=== PATIENT | male | born 1960 | race Caucasian/White ===

== ENCOUNTER → 2019-10-31 15:22 | Outpatient (CLI) | payer MEDICARE, SELFPAY ==
[2019-10-31 15:54] LABS: Basophils # 0.1 K/mm3 (0-0.2); Basophils % 0.8 % (0.1-2.0); Eosinophils # 0.4 K/mm3 (0.0-0.4); Eosinophils % 6.2 % (0.1-12.0); Hematocrit 43.9 % (42.0-52.0); Hemoglobin 14.5 g/dL (14.1-18.0); Lymphocytes # 1.9 K/mm3 (0.7-4.5); Lymphocytes % 25.9 % (10-50); Mean Corpuscular HGB Conc 33.1 g/dL (31.8-35.4); Mean Corpuscular Hemoglobin 28.8 pg (27.0-31.2); Mean Corpuscular Volume 87.2 fl (80-94); Mean Platelet Volume 9.2 fl (7.4-10.4); Monocytes # 0.5 K/mm3 (0.1-1.0); Neutrophils # 4.3 K/mm3 (1.8-7.8); Neutrophils % 60.1 % (37.0-80.0); Platelet Count 168 K/mm3 (142-424); Red Blood Count 5.03 M/mm3 (4.60-6.20); Red Cell Distribution Width 16.5 % (11.5-17.5); White Blood Count 7.2 K/mm3 (4.8-10.8)
[2019-10-31 17:43] LABS: Alanine Aminotransferase 16 U/L (12-78); Albumin Level 3.2 g/dl (3.5-5.0); Albumin/Globulin Ratio 1.3 (1.1-1.8); Alkaline Phosphatase 50 U/L (38-126); Anion Gap 8.9 mEq/L (5-15); Aspartate Amino Transferase 26 U/L (17-59); Bilirubin,Total 0.4 mg/dl (0.2-1.3); Blood Urea Nitrogen 14 mg/dl (9-20); Calcium 8.5 mg/dl (8.4-10.2); Carbon Dioxide 21 mmol/L (22.0-30.0); Chloride 110 mmol/L (98-107); Creatine Kinase 25 U/L (55-170); Estimated Glomerular Filt Rate 309 ml/min (>60); GFR (African American) 374 ML/MIN (>60); Globulin 2.4 g/dL (1.3-3.2); Glucose 74 mg/dl (74-100); Potassium 3.9 mmoL/L (3.5-5.1); Sodium 136 mmol/L (136-145); Total Protein,Serum 5.6 g/dl (6.3-8.2)
== END ==
PROVIDERS: Visit Provider Internal Medicine Infectious Disease
DX: M86.18 Other acute osteomyelitis, other site (principal)
CPT/HCPCS: 80053; 82550; 85025; 86140

== ENCOUNTER → 2019-12-12 18:01 | Outpatient (CLI) | payer MEDICARE, SELFPAY ==
[2019-12-12 18:15] LABS: Basophils % 0.5 % (0.1-2.0); Eosinophils # 0.4 K/mm3 (0.0-0.4); Eosinophils % 4.7 % (0.1-12.0); Hematocrit 40.8 % (42.0-52.0); Hemoglobin 13.3 g/dL (14.1-18.0); Lymphocytes # 1.6 K/mm3 (0.7-4.5); Lymphocytes % 20.1 % (10-50); Mean Corpuscular HGB Conc 32.5 g/dL (31.8-35.4); Mean Corpuscular Hemoglobin 27.8 pg (27.0-31.2); Mean Corpuscular Volume 85.5 fl (80-94); Monocytes # 0.4 K/mm3 (0.1-1.0); Monocytes % 5.3 % (1.7-9.3); Neutrophils # 5.4 K/mm3 (1.8-7.8); Neutrophils % 69.4 % (37.0-80.0); Platelet Count 261 K/mm3 (142-424); Red Blood Count 4.77 M/mm3 (4.60-6.20); Red Cell Distribution Width 15.9 % (11.5-17.5); White Blood Count 7.8 K/mm3 (4.8-10.8)
[2019-12-12 19:44] LABS: Erythrocyte Sedimentation Rate 81 mm/hr (0-20)
[2019-12-19 11:11] LABS: C-Reactive Protein 5.8 mg/L (0-4)
== END ==
PROVIDERS: Visit Provider Physical Medicine & Rehabilitation Spinal Cord Injury Medicine
DX: L89.224 Pressure ulcer of left hip, stage 4 (principal); M86.18 Other acute osteomyelitis, other site; G82.53 Quadriplegia, C5-C7 complete
CPT/HCPCS: 85025; 85651; 86140

== ENCOUNTER → 2020-02-06 16:53 | Outpatient (CLI) | payer MEDICARE, SELFPAY ==
[2020-02-06 17:13] LABS: Basophils # 0.1 K/mm3 (0-0.2); Basophils % 0.9 % (0.1-2.0); Eosinophils # 0.5 K/mm3 (0.0-0.4); Eosinophils % 8.7 % (0.1-12.0); Hematocrit 39.5 % (42.0-52.0); Hemoglobin 13.3 g/dL (14.1-18.0); Lymphocytes # 1.9 K/mm3 (0.7-4.5); Lymphocytes % 30.5 % (10-50); Mean Corpuscular HGB Conc 33.7 g/dL (31.8-35.4); Mean Corpuscular Hemoglobin 29.2 pg (27.0-31.2); Mean Corpuscular Volume 86.6 fl (80-94); Mean Platelet Volume 9.1 fl (7.4-10.4); Monocytes # 0.4 K/mm3 (0.1-1.0); Monocytes % 6.9 % (1.7-9.3); Neutrophils # 3.2 K/mm3 (1.8-7.8); Platelet Count 177 K/mm3 (142-424); Red Blood Count 4.56 M/mm3 (4.60-6.20); Red Cell Distribution Width 16.6 % (11.5-17.5); White Blood Count 6.1 K/mm3 (4.8-10.8)
[2020-02-06 17:22] LABS: Chloride 104 mmol/L (98-107); Potassium 4.1 mmoL/L (3.5-5.1); Sodium 135 mmol/L (136-145)
[2020-02-06 17:25] LABS: Alanine Aminotransferase 57 U/L (12-78); Albumin Level 3.8 g/dl (3.5-5.0); Alkaline Phosphatase 80 U/L (38-126); Anion Gap 9.1 mEq/L (5-15); Aspartate Amino Transferase 41 U/L (17-59); Bilirubin,Total 0.6 mg/dl (0.2-1.3); Blood Urea Nitrogen 11 mg/dl (9-20); Calcium 10.3 mg/dl (8.4-10.2); Carbon Dioxide 26 mmol/L (22.0-30.0); Estimated Glomerular Filt Rate 171 ml/min (>60); GFR (African American) 207 ML/MIN (>60); Glucose 116 mg/dl (74-100); Total Protein,Serum 6.6 g/dl (6.3-8.2)
[2020-02-06 17:26] LABS: Albumin/Globulin Ratio 1.4 (1.1-1.8); Globulin 2.8 g/dL (1.3-3.2)
[2020-02-06 17:29] LABS: Creatine Kinase < 20 U/L (55-170)
[2020-02-06 17:31] LABS: C-Reactive Protein 1.4 mg/L (0-4)
[2020-02-06 21:21] LABS: Erythrocyte Sedimentation Rate 22 mm/hr (0-20)
== END ==
PROVIDERS: Visit Provider Internal Medicine Infectious Disease
DX: M86.18 Other acute osteomyelitis, other site (principal)
CPT/HCPCS: 80053; 82550; 85025; 85651; 86140

== ENCOUNTER → 2020-02-13 14:45 | Outpatient (CLI) | payer MEDICARE, SELFPAY ==
[2020-02-13 16:00] LABS: Basophils # 0.1 K/mm3 (0-0.2); Basophils % 0.7 % (0.1-2.0); Eosinophils # 0.7 K/mm3 (0.0-0.4); Eosinophils % 8.1 % (0.1-12.0); Hemoglobin 13.9 g/dL (14.1-18.0); Lymphocytes # 1.4 K/mm3 (0.7-4.5); Lymphocytes % 16.5 % (10-50); Mean Corpuscular HGB Conc 34.7 g/dL (31.8-35.4); Mean Corpuscular Hemoglobin 30.2 pg (27.0-31.2); Mean Platelet Volume 9.2 fl (7.4-10.4); Monocytes # 0.5 K/mm3 (0.1-1.0); Monocytes % 5.2 % (1.7-9.3); Neutrophils # 6.1 K/mm3 (1.8-7.8); Neutrophils % 69.6 % (37.0-80.0); Platelet Count 183 K/mm3 (142-424); Red Blood Count 4.59 M/mm3 (4.60-6.20); Red Cell Distribution Width 16.8 % (11.5-17.5); White Blood Count 8.8 K/mm3 (4.8-10.8)
[2020-02-13 16:07] LABS: Chloride 105 mmol/L (98-107); Sodium 137 mmol/L (136-145)
[2020-02-13 16:08] LABS: Potassium 4.3 mmoL/L (3.5-5.1)
[2020-02-13 16:10] LABS: Alanine Aminotransferase 34 U/L (12-78); Albumin Level 3.9 g/dl (3.5-5.0); Albumin/Globulin Ratio 1.4 (1.1-1.8); Alkaline Phosphatase 82 U/L (38-126); Anion Gap 13.3 mEq/L (5-15); Aspartate Amino Transferase 28 U/L (17-59); Bilirubin,Total 0.6 mg/dl (0.2-1.3); Blood Urea Nitrogen 12 mg/dl (9-20); Carbon Dioxide 23 mmol/L (22.0-30.0); Estimated Glomerular Filt Rate 221 ml/min (>60); GFR (African American) 267 ML/MIN (>60); Globulin 2.7 g/dL (1.3-3.2); Total Protein,Serum 6.6 g/dl (6.3-8.2)
[2020-02-13 16:11] LABS: Calcium 10.1 mg/dl (8.4-10.2); Glucose 134 mg/dl (74-100)
[2020-02-13 16:32] LABS: Erythrocyte Sedimentation Rate 24 mm/hr (0-20)
== END ==
PROVIDERS: Visit Provider Internal Medicine Infectious Disease
DX: M86.18 Other acute osteomyelitis, other site (principal)
CPT/HCPCS: 80053; 85025; 85651

== ENCOUNTER → 2020-02-21 14:52 | Outpatient (CLI) | payer MEDICARE, SELFPAY ==
[2020-02-21 15:50] LABS: Basophils # 0.1 K/mm3 (0-0.2); Basophils % 0.8 % (0.1-2.0); Eosinophils # 0.6 K/mm3 (0.0-0.4); Eosinophils % 9.8 % (0.1-12.0); Hematocrit 41.9 % (42.0-52.0); Hemoglobin 13.8 g/dL (14.1-18.0); Lymphocytes # 1.7 K/mm3 (0.7-4.5); Lymphocytes % 29.1 % (10-50); Mean Corpuscular HGB Conc 32.9 g/dL (31.8-35.4); Mean Corpuscular Hemoglobin 29.2 pg (27.0-31.2); Mean Corpuscular Volume 88.8 fl (80-94); Mean Platelet Volume 8.8 fl (7.4-10.4); Monocytes # 0.5 K/mm3 (0.1-1.0); Monocytes % 7.8 % (1.7-9.3); Neutrophils # 3.1 K/mm3 (1.8-7.8); Neutrophils % 52.5 % (37.0-80.0); Platelet Count 185 K/mm3 (142-424); Red Blood Count 4.71 M/mm3 (4.60-6.20); Red Cell Distribution Width 16.8 % (11.5-17.5)
[2020-02-21 17:00] LABS: Chloride 102 mmol/L (98-107); Sodium 136 mmol/L (136-145)
[2020-02-21 17:01] LABS: Potassium 4.5 mmoL/L (3.5-5.1)
[2020-02-21 17:03] LABS: Alanine Aminotransferase 24 U/L (12-78); Alkaline Phosphatase 79 U/L (38-126); Anion Gap 14.5 mEq/L (5-15); Aspartate Amino Transferase 30 U/L (17-59); Bilirubin,Total 0.5 mg/dl (0.2-1.3); Blood Urea Nitrogen 18 mg/dl (9-20); Carbon Dioxide 24 mmol/L (22.0-30.0); Estimated Glomerular Filt Rate 221 ml/min (>60); GFR (African American) 267 ML/MIN (>60)
[2020-02-21 17:04] LABS: Albumin Level 3.6 g/dl (3.5-5.0); Albumin/Globulin Ratio 1.4 (1.1-1.8); Calcium 9.8 mg/dl (8.4-10.2); Globulin 2.6 g/dL (1.3-3.2); Glucose 106 mg/dl (74-100); Total Protein,Serum 6.2 g/dl (6.3-8.2)
[2020-02-21 17:15] LABS: C-Reactive Protein 3.5 mg/L (0-4)
[2020-02-21 17:45] LABS: Erythrocyte Sedimentation Rate 24 mm/hr (0-20)
[2020-02-21 18:09] LABS: Creatine Kinase < 20 U/L (55-170)
== END ==
PROVIDERS: Visit Provider Internal Medicine Infectious Disease
DX: M86.18 Other acute osteomyelitis, other site (principal)
CPT/HCPCS: 80053; 82550; 85025; 85651; 86140

== ENCOUNTER → 2020-02-27 17:58 | Outpatient (CLI) | payer MEDICARE, SELFPAY ==
[2020-02-27 18:24] LABS: Basophils % 0.6 % (0.1-2.0); Eosinophils # 0.4 K/mm3 (0.0-0.4); Eosinophils % 7.2 % (0.1-12.0); Hematocrit 43.7 % (42.0-52.0); Hemoglobin 14.6 g/dL (14.1-18.0); Lymphocytes # 1.9 K/mm3 (0.7-4.5); Lymphocytes % 31.7 % (10-50); Mean Corpuscular HGB Conc 33.4 g/dL (31.8-35.4); Mean Corpuscular Hemoglobin 29.3 pg (27.0-31.2); Mean Corpuscular Volume 87.7 fl (80-94); Mean Platelet Volume 8.9 fl (7.4-10.4); Monocytes # 0.4 K/mm3 (0.1-1.0); Monocytes % 7.5 % (1.7-9.3); Neutrophils # 3.1 K/mm3 (1.8-7.8); Platelet Count 177 K/mm3 (142-424); Red Blood Count 4.99 M/mm3 (4.60-6.20); Red Cell Distribution Width 16.8 % (11.5-17.5); White Blood Count 5.9 K/mm3 (4.8-10.8)
[2020-02-27 19:20] LABS: Chloride 105 mmol/L (98-107); Potassium 4.6 mmoL/L (3.5-5.1); Sodium 138 mmol/L (136-145)
[2020-02-27 19:22] LABS: Alanine Aminotransferase 29 U/L (12-78); Aspartate Amino Transferase 32 U/L (17-59); Blood Urea Nitrogen 13 mg/dl (9-20); Estimated Glomerular Filt Rate 221 ml/min (>60); GFR (African American) 267 ML/MIN (>60)
[2020-02-27 19:23] LABS: Albumin Level 3.7 g/dl (3.5-5.0); Albumin/Globulin Ratio 1.3 (1.1-1.8); Alkaline Phosphatase 100 U/L (38-126); Anion Gap 15.6 mEq/L (5-15); Bilirubin,Total 0.5 mg/dl (0.2-1.3); Calcium 10.1 mg/dl (8.4-10.2); Carbon Dioxide 22 mmol/L (22.0-30.0); Globulin 2.8 g/dL (1.3-3.2); Glucose 95 mg/dl (74-100); Total Protein,Serum 6.5 g/dl (6.3-8.2)
[2020-02-27 19:26] LABS: Creatine Kinase < 20 U/L (55-170)
[2020-02-27 19:29] LABS: C-Reactive Protein 2.5 mg/L (0-4)
[2020-02-27 19:32] LABS: Erythrocyte Sedimentation Rate 19 mm/hr (0-20)
== END ==
PROVIDERS: Visit Provider Internal Medicine Infectious Disease
DX: Z48.00 Encounter for change or removal of nonsurgical wound dressing (principal)
CPT/HCPCS: 80053; 82550; 85025; 85651; 86140

== ENCOUNTER → 2020-03-05 14:24 | Outpatient (CLI) | payer MEDICARE, SELFPAY ==
[2020-03-05 15:05] LABS: Basophils # 0.1 K/mm3 (0-0.2); Basophils % 0.8 % (0.1-2.0); Eosinophils # 0.4 K/mm3 (0.0-0.4); Eosinophils % 6.1 % (0.1-12.0); Hematocrit 43.4 % (42.0-52.0); Hemoglobin 14.5 g/dL (14.1-18.0); Lymphocytes # 1.8 K/mm3 (0.7-4.5); Lymphocytes % 27.9 % (10-50); Mean Corpuscular HGB Conc 33.5 g/dL (31.8-35.4); Mean Corpuscular Hemoglobin 29.7 pg (27.0-31.2); Mean Corpuscular Volume 88.4 fl (80-94); Mean Platelet Volume 9.1 fl (7.4-10.4); Monocytes # 0.5 K/mm3 (0.1-1.0); Neutrophils # 3.7 K/mm3 (1.8-7.8); Neutrophils % 57.3 % (37.0-80.0); Platelet Count 183 K/mm3 (142-424); Red Cell Distribution Width 16.9 % (11.5-17.5); White Blood Count 6.4 K/mm3 (4.8-10.8)
[2020-03-05 15:27] LABS: Chloride 105 mmol/L (98-107); Potassium 4.5 mmoL/L (3.5-5.1); Sodium 139 mmol/L (136-145)
[2020-03-05 15:29] LABS: Blood Urea Nitrogen 20 mg/dl (9-20); Estimated Glomerular Filt Rate 171 ml/min (>60); GFR (African American) 207 ML/MIN (>60)
[2020-03-05 15:30] LABS: Alanine Aminotransferase 30 U/L (12-78); Albumin Level 3.6 g/dl (3.5-5.0); Albumin/Globulin Ratio 1.3 (1.1-1.8); Alkaline Phosphatase 75 U/L (38-126); Anion Gap 13.5 mEq/L (5-15); Aspartate Amino Transferase 37 U/L (17-59); Bilirubin,Total 0.5 mg/dl (0.2-1.3); Calcium 10.2 mg/dl (8.4-10.2); Carbon Dioxide 25 mmol/L (22.0-30.0); Creatine Kinase 22 U/L (55-170); Globulin 2.8 g/dL (1.3-3.2); Glucose 80 mg/dl (74-100); Total Protein,Serum 6.4 g/dl (6.3-8.2)
[2020-03-05 15:36] LABS: C-Reactive Protein 0.8 mg/L (0-4)
== END ==
PROVIDERS: Visit Provider Physical Medicine & Rehabilitation Spinal Cord Injury Medicine
DX: M86.18 Other acute osteomyelitis, other site (principal)
CPT/HCPCS: 80053; 82550; 85025; 86140

== ENCOUNTER 2025-01-22 05:37 | Inpatient (IN) | payer OTHER, SELFPAY ==
[2025-01-22] VITALS (59 sets, daily range): BP systolic 0–171; BP diastolic 0–99; PULSE 0–143; RESP 0–27; TEMP 36.4–38.6; O2SAT 0–100; BMI 24.3
[2025-01-22] MEDS: EPINEPHrine 0.1 MG/ML 10ML SYRINGE (CRASH CART) 1 MG IV ×11 (05:37→06:45)
--- NOTE | 2025-01-22 05:44 | ECG_ITS ---
APPROVED REPORT Exam: Resting ECG HR:112 bpm ECG Measurements Heart Rate 112 AXES QRSd 96 QRS 46 QT 257 T 0 QTc 323 Conclusion ATRIAL FIBRILLATION WITH RAPID VENTRICULAR RESPONSE ST ELEVATION, CONSIDER ANTEROLATERAL INJURY [MARKED ST ELEVATION W/O NORMALLY INFLECTED T-WAVE IN V3-V6] ST abnormalities in multiple leads, possible inferolateral or anterolateral injury but no STEMI Electronically signed by : MYKEL CHAUDHRY, 01/23/2025 03:52:30
[2025-01-22] MEDS: HEPARIN SODIUM 5,000 UNIT/ML VIAL 4000 UNIT IV ×2 (05:58→17:57)
--- NOTE | 2025-01-22 06:06 | ECG_ITS ---
APPROVED REPORT Exam: Resting ECG HR:91 bpm ECG Measurements Heart Rate 91 AXES QRSd 99 QRS -63 QT 254 T 32 QTc 303 Conclusion ATRIAL FIBRILLATION LEFT AXIS DEVIATION [QRS AXIS < -30] MODERATE ST DEPRESSION [0.05+ mV ST DEPRESSION] Significant artifact, no STEMI Electronically signed by : MYKEL CHAUDHRY, 01/23/2025 03:52:51
--- NOTE | 2025-01-22 06:09 | XR_ITS ---
PROCEDURE INFORMATION: Exam: XR Chest Exam date and time: 01/22/2025 6:12 AM Age: 64 years old Clinical indication: Device placement; Ett placement (vent status) TECHNIQUE: Imaging protocol: Radiologic exam of the chest. Views: 1 view. COMPARISON: No relevant prior studies available. FINDINGS: Tubes, catheters and devices: There is a nasogastric tube projecting in a left lower lobe bronchus. A 2nd image demonstrates the nasogastric tube within the right mainstem bronchus. Recommend tube removal and replacement. The endotracheal tube is in good position about 2.4 cm above the level of the brandyn. Lungs: Unremarkable. No consolidation. Pleural spaces: Unremarkable. No pleural effusion. No pneumothorax. Heart/Mediastinum: Unremarkable. No cardiomegaly. Bones/joints: Unremarkable. IMPRESSION: 1. The endotracheal tube is in good position. 2. Misplaced nasogastric tube with 1 of the images demonstrating the tube in a left lower lobe bronchus and another image with the tube in the right mainstem bronchus.
[2025-01-22] MEDS: SODIUM BICARB 8.4% 50ML SYRINGE (CRASH CART) 50 MEQ IV (06:13)
[2025-01-22] MEDS: HEPARIN SODIUM,PORCINE/D5W 500 ML 19 UNIT IV (06:20)
--- OUTSIDE RECORDS SUMMARY | 2025-01-22 06:31 | XMS_ITS | Clinical Summary ---
Author Organization Healthcare Address [address] [place] [address] Care Team Providers Care Rrts Name Role Phone Unavailable Primary Care Provider Unavailabl e Social History Tobacco Use Types Packs/Day Years Used Date Smoking Tobacco: Never Assessed Sex and Gender Information Value Date Recorded Sex Assigned at Not on file Legal Sex Male 8:28 PM EDT Gender Identity Not on file Sexual Orientation Not on file Plan of Treatment Not on file
--- NOTE | 2025-01-22 06:59 | HMH.EDGENADL ---
Discharge Plan Prescriptions Prescriptions: No Action sennosides 8.6 MG tablet 8.6 mg PO DAILY atorvastatin 20 MG tablet 20 mg PO DAILY Rx Instructions: 1/2 tab daily oxybutynin chloride 10 MG tablet extended release 24hr 10 mg PO DAILY aspirin 81 MG tablet,delayed release (DR/EC) 81 mg PO DAILY baclofen 20 MG tablet 20 mg PO 5XDAY docusate sodium 100 MG capsule 100 mg PO DAILY Referrals Follow up/Referrals: Karen Car MD [Primary Care Provider, Medical] - See instructions Clinical Impressions Clinical Impression: Respiratory arrest, Cardiac arrest, Respiratory failure with hypoxia and hypercapnia Print Language Print Language: Urdu Discharge ED Provider: Gita Kwan General Adult HPI General Stated complaint: Code Blue Time Seen by Provider: 01/22/25 05:37 History of Present Illness HPI narrative: 64-year-old male quadriplegic with history of stroke presented to the ER with EMS after EMS had been called for respiratory distress. EMS arrived to the ER at 0530. I was at bedside upon arrival. EMS reports when they arrived patient had shallow breathing and a pulse, but quickly became apneic and pulseless. It was a witnessed arrest. CPR was started and supraglottic device was placed in the field. Patient received ACLS prior to arrival including use of the auto pulse. Later in the encounter, patient's presented and reported that they got home from [place] after the patient had been hospitalized there due to infection on vacation. She reports while in [place] he had antibiotics for pneumonia, he also had surgery to debride bedsores. Additionally he had a G-tube and colostomy tube placed. He has a pre-existing suprapubic catheter. He is still on antibiotics at home which she believes to be amoxicillin. She reports patient woke up multiple times overnight having to cough and she tried to get him to cough but had difficulty earlier this morning before he developed worsening respiratory distress and she called 911. She does report patient is full code. Related Data Home Medications ?Medication ?Instructions ?Recorded ?Confirmed aspirin 81 mg tablet,delayed 81 mg PO DAILY heart 02/20/19 02/20/19 release atorvastatin 20 mg tablet 20 mg PO DAILY Cholesterol 02/20/19 02/20/19 baclofen 20 mg tablet 20 mg PO 5XDAY spasms 02/20/19 02/20/19 docusate sodium 100 mg capsule 100 mg PO DAILY constipation 02/20/19 02/20/19 oxybutynin chloride 10 mg 10 mg PO DAILY bladder 02/20/19 02/20/19 tablet,extended release 24 hr sennosides 8.6 mg tablet 8.6 mg PO DAILY constipation 02/20/19 02/20/19 Allergies Allergy/AdvReac Type Severity Reaction Status Date / Time Penicillins Allergy Intermediate Verified 02/20/19 09:30 vancomycin Allergy Verified 02/20/19 09:30 [facility] Disclaimer: The information contained in this section may have been updated after the patient was seen, as this information can be updated by other users. Social History Smoking Status: Never smoker alcohol intake: never current occupational status: other Travel in the last 8 weeks?: None household members: spouse Other Medical History Have you received the Flu Vaccine for this season: Yes Have you received the Pneumonia Vaccine: Yes ROS Obtained: Yes unobtainable due to endotracheal tube Physical Exam General General appearance: other (Unresponsive, pale) Head Head exam: atraumatic and normocephalic Eye Eye exam: Absent PERRL (Pupils fixed and dilated) ENT ENT exam: Present normal oropharynx and other (Supraglottic device in place) Neck Neck exam: Present trachea midline Chest Chest inspection: Present normal inspection and symmetric chest wall rise Respiratory Respiratory exam: Present other (Rhonchorous bilateral lateral breath sounds) Cardiovascular Cardiovascular exam: Present other (Pulse upon arrival) Abdominal Exam Abdominal exam: Present soft; Absent distention Comment: G-tube, colostomy, suprapubic catheter present. Suprapubic catheter has purulent material Extremities Exam Extremities exam: Present other (Left upper extremity contracture) Neurological Exam Neurological exam: Present other (Unresponsive, GCS 3 T) Skin Skin exam: Present other (Cool, pale) Medical Decision Making Medical Records Medical records reviewed: Yes I reviewed the patient's medical records. Screening: Per USPSTF and CDC recommendations, given the prevalence of disease in our region, it is our hospital?s policy to screen for HIV and viral Hepatitis for all patients aged 18 and over and those with ongoing risk factors. Saad Inquiry Pt receiving controlled substance: No Vital Signs: 01/22/25 06:10 01/22/25 06:48 01/22/25 07:00 Pulse Rate 127 H 103 H Respiratory Rate 24 24 24 Blood Pressure 132/87 02 Sat by Pulse Oximetry 89 L 100 99 Oxygen Delivery Method Mechanical Ventilation Fraction of Inspired Oxygen 100 01/22/25 07:30 Pulse Rate 118 H Respiratory Rate 24 Blood Pressure 129/83 02 Sat by Pulse Oximetry 99 Oxygen Delivery Method Mechanical Ventilation Fraction of Inspired Oxygen Lab Data Lab Results 01/22/25 05:20: Sodium 138, Potassium 7.6 H*, Chloride 111 H, Carbon Dioxide 7 L*, Anion Gap 27.6 H, BUN 11, Creatinine 0.30 L, Estimated Creat Clear 79, Estimated GFR 304, Est GFR ( Amer) 368, Glucose 210 H, Calcium 8.3 L, Total Bilirubin 0.5, AST 65 H, ALT 64, Alkaline Phosphatase 189 H, Total Protein 5.0 L, Albumin 2.6 L, Globulin 2.4, Albumin/Globulin Ratio 1.1 01/22/25 05:20 Orders (Tests/Meds): ED MEDICATIONS Generic Name Dose Route Start Last Admin Trade Name Freq PRN Reason Stop Dose Admin Epinephrine HCl 1 mg 01/22/25 07:18 Epinephrine 0.1 Mg/Ml 10ml Syringe (Crash Cart) IV 02/21/25 07:17 NEEDED PRN CPR Heparin Sodium/Dextrose 500 mls @ 19 mls/hr 01/22/25 06:15 Heparin 25,000 Units In D5w 500ml Premix IV 02/21/25 06:14 .Q25H KIMBER 950 UNITS/HR Norepinephrine/Dextrose 8 mg in 250 mls @ 15 mls/hr 01/22/25 07:30 Levophed 8mg/250ml-D5w Premix IV 02/21/25 07:29 .[id number] KIMBER Protocol 8 MCG/MIN Epinephrine HCl 5 mg/ Sodium 255 mls @ 12.24 mls/hr 01/22/25 07:30 Chloride IV 02/21/25 07:29 .[id number] KIMBER Protocol 4 MCG/MIN Ceftriaxone Sodium 1 gm/ 50 mls @ 100 mls/hr 01/22/25 07:30 Sodium Chloride IV 02/01/25 07:29 Q24H KIMBER Sodium Chloride 3 ml 01/22/25 06:51 Sodium Chloride 3% 15ml Neb IH 02/21/25 06:50 ONCE PRN INDUCE SPUTUM COLLECTION Discontinued Medications Generic Name Dose Route Start Last Admin Trade Name Freq PRN Reason Stop Dose Admin Heparin Sodium (Porcine) 4,000 unit 01/22/25 06:00 Heparin Sodium 5,000 Unit/Ml Vial IV 01/22/25 06:01 ONCE ONE Sodium Bicarbonate 50 meq 01/22/25 07:20 Sodium Bicarb 8.4% 50ml Syringe (Crash Cart) IV 01/22/25 07:21 ONCE ONE ORDERS Category Date Time Status CT angio abdomen pelvis Stat Cat Scan 01/22/25 06:[address] angio chest PE protocol Stat Cat Scan 01/22/25 06:[address] head/brain wo con Stat Cat Scan 01/22/25 06:21 Ordered POCUS Point of Care (ER Only) Stat Exams 01/22/25 07:21 Ordered XR chest portable Stat Exams 01/22/25 06:09 Taken BMP [Basic Metabolic Panel] Stat Lab 01/22/25 07:34 Ordered CBC w/Auto Diff [Complete Blood Count Auto Diff] Stat Lab 01/22/25 05:40 Received CMP [Comprehensive Metabolic Panel] Stat Lab 01/22/25 05:20 Completed D-Dimer Stat Lab 01/22/25 06:23 Ordered Heparin drip PTT [PTT Heparin (inpatient only)] Stat Lab 01/22/25 12:00 Ordered Troponin I Q3H Lab 01/22/25 09:30 Ordered Troponin I Q3H Lab 01/22/25 12:30 Ordered Troponin I Stat Lab 01/22/25 05:40 Received Sputum Culture & Gram Stain Stat Micro 01/22/25 06:20 Received ABG [Arterial Blood Gas] Stat RT 01/22/25 06:38 Ordered Medical Decision Narrative: In summary, 64-year-old male who is highly comorbid with multiple chronic medical conditions including but not limited to quadriplegia, feeding tube, colostomy, suprapubic catheter, previous stroke presents to the ER with EMS as a CODE BLUE in cardiac arrest. I was present at bedside when patient arrived at 0530. Patient was pulseless, cool, pale, GCS 3 T, rhonchorous breath sounds bilaterally with supraglottic device in place, pulse was only palpable with auto pulse running. Initial rhythm asystole in the ER. Differential diagnosis includes but is not limited to respiratory rest, cardiac arrest, arrhythmia, STEMI, PE, electrolyte abnormality, anoxic brain injury, metabolic abnormality, infection, among others. Additional IO access obtained by nursing. ACLS was continued, supraglottic device was exchanged for endotracheal tube given concern for respiratory arrest and wanting to optimize oxygenation. When this happened, patient had extremely low oxygen saturations in the low 40s but with the endotracheal tube in place they gradually started to improve. He had a rhythm change and end-tidal CO2 improved and at pulse check patient had palpable pulse with organized rhythm on the monitor and cardiac ultrasound showed no pericardial effusion. ECG was captured at that time demonstrating A-fib with RVR, rate 112, patient had multiple ST abnormalities including elevation in lead II and III, questionable elevation in the lateral leads. With this finding, I considered STEMI and administered heparin bolus initially. Nor epi drip was started. Left radial arterial line placed. Right femoral central line placed. Reach out to Dr. Shirley he was eventually able to call me back. We discussed his EKG in the agrees with the heparin drip and bolus continuing but does not believe that this patient is appropriate for Mult[employer] Author or that he has a STEMI. I appreciate his recommendations. Repeat ECG with atrial fibrillation, left axis deviation, ST abnormalities but no STEMI. Patient became bradycardic and hypotensive again despite norepinephrine running and pulse was lost. ACLS was restarted. When patient did not have a pulse his rhythm was always asystole. Patient received push doses of epinephrine and ROSC was again achieved. Nor epi drip restarted. VBG resulted with pH 6.5, significant hypercarbia, mild hyperkalemia. Patient received nebulizer treatments through the ventilator. Chest x-ray personally interpreted demonstrates appropriate positioning of the endotracheal tube without obvious pneumothorax though interpretation is limited secondary to other equipment on the patient. OG tube initially in the left lung, repeat x-ray shows OG tube in the right lung. OG tubes had been placed by nursing but patient has a PEG tube so OG tube was removed since PEG tube can be vented if needed. Unfortunately titrating the norepinephrine drip proved to be very difficult as the patient would respond well and then suddenly become bradycardic and hypotensive again and would not respond quickly enough to push dose epinephrine. In total, patient became pulseless in the ER 4 times with ROSC achieved each time. I spent significant time discussing and explaining patient's case to his with RAS Brewer present. She reports the patient did not want to be a full code with full life support. The family's business services tech came to bedside as well for the patient. Patient's children presented. With epi drip and nor epi drip, we were able to achieve a point of relative stability. As long as the patient's blood pressure stays in the upper 130s to 140s and heart rate above 75, he remains stable, if either of these metrics below this, he quickly decompensates and becomes asystolic again. He is tolerating the Nor epi and epi well. He continues to be on heparin drip and the ventilator. He is still a GCS 3 T with no spontaneous respirations, no spontaneous movements, no response to stimuli. Repeat ABG has shown some signs of improvement with improving PCO2 and pH now 6.8. Due to staff availability, labs took a significant amount of time to results and had clotted and hemolyzed. Repeat labs pending. Troponin is undetectable. Additional labs pending. I do not believe patient is stable for CTs though they have been ordered. I discussed with family at bedside that the patient had sustained a significant amount of downtime of his fixed, dilated pupils, GCS 3 T, no spontaneous respirations or movements that I was very concerned about significant anoxic brain injury. After discussion with family at bedside, they want to continue all current interventions but made the decision to have no more CPR performed on the patient if his heart were to start again. I believe this is a very reasonable decision given the likely lack of meaningful life after such a significant insult. Patient is appropriate for admission at this time. I discussed this patient with the hospitalist including his current ventilator and vasopressor support. Patient was accepted for admission in critical condition. Procedures Intubation Mallampati Score:: Class II Time out performed: No (emergent situation) sedative: none (gcs 3) Laryngoscope: Svitlana (Mac 4 video scope) ET Tube Size: 7.5 ET Tube Uncuffed: No Tube Secured Depth (cm): 25 Tube Secured Location: teeth Tube Placement Confirmation: visualized tube passing through cords, equal breath sounds bilaterally, no breath sounds over epigastrium and confirmation by capnometry Patient Tolerated Procedure: well and no complications Intubation Complications: hypoxia (Patient was hypoxic prior to intubation and was persistently hypoxic during intubation but oxygen saturations started to improve immediately after intubation) Additional Comments: CPR ongoing during intubation Central Line Placement Right Femoral: Time Out Performed: No (Emergent situation) Patient Placed on Monitor/Pulse Ox: Yes Central Line Prep: Chlorhexidine scrub Ultrasound Used for Placement: Yes (Direct visualization under ultrasound guidance ) Central Line Lumen Inserted: triple Post Procedure: sutured in place, good blood return, all ports aspirated, flushed, capped and sterile dressing applied Patient Tolerated Procedure: well and no complications Additional Comments: Area was cleansed with chlorhexidine prior to procedure, maximum sterile technique was not followed secondary to emergent situation necessitating rapid central IV access. Line was placed as cleanly as possible given the situation. Arterial Line Time Out Performed: No (Emergent situation) Size (Gauge): 20 Technique Used: guide wire technique (Under real-time ultrasound guidance) Post-Procedure: line sutured into place and dry sterile dressing placed Patient Tolerated Procedure: well and no complications Complications: none Site: left and radial Additional Comments: Area cleansed with chlorhexidine, this was not a fully sterile arterial line due to emergent situation, but it was placed as cleanly as possible given the scenario Miscellaneous Procedure Procedure Performed: Limited Cardiac Ultrasound Indication: CODE BLUE Identified cardiac views: [-Cardiac subxiphoid] Findings: Cardiac activity present with no pericardial effusion, limited cardiac ultrasound secondary to other devices in place and patient's critical presentation Impression: Cardiac activity present with no pericardial effusion, limited cardiac ultrasound secondary to other devices in place and patient's critical presentation Images were saved to permanent archive The study was technically adequate CPT: 87333 This study was performed by me, and I personally interpreted all images/videos. Based on my clinical judgement, these images were adequate and did not necessitate further imaging. Critical Care Critical Care Time Critical Care Time: Yes Attestation: On 01/22/25, the high probability of a clinically significant, sudden or life threatening deterioration of the following system(s) required my full and direct attention, intervention and personal management. The time I documented below is in addition to time spent performing reported procedures but includes the following listed in this critical care notation. Total Time Total Critical Care Time: 95
[2025-01-22] MEDS: CEFTRIAXONE 1 GM 1 GM in 0.9 % SODIUM CHLORIDE 50 ML IV (07:01)
--- NOTE | 2025-01-22 07:16 | PC.NURSE ---
Code Chartin: EMS began CPR on scene, witnessed arrest 0526: Pt arrived to ED, moved into bed 3. CPR continued by autopulse 0530: pt moved to ED stretcher, and placed on our monitors 0533: epi administered 0537: pulse check-asystole on the monitor. no pulse palpable. Intubated by Benita BURROUGHS, + color change, placement confirmed by Xray, 24cm @ the teeth 0536: epi #2 administered 0539: epi #3 administered 0542: pulse check- rhythm change, pulse on monitor and palpable. BP: 121/86 HR:108 End tidal:20, CPR stopped. Epi #4 given 0545: EKG 0547: Pulse check- no pulse, CPR resumed. EPI #5 given 0548: Norepi drip started at 30mcg/min 0550: EPI # 6 given 0551: A-line inserted by MD Benita 0552: pulse check-organized rhythm on monitor and palpable pulse found. HR-112 BP:143/93 0555: Epi #7 given 0556: CPR resumed, asysole on the monitor, no palpable pulse. 0558: Heparin bolus started 4000 units 0559: Pulse check, rhythm change. HP:110 BP:186/120 0601: femoral line inserted and functional by MD Benita 0602: Epi #8 given 0603: chest xray for tube placement 0629: CPR started, asystole on the monitor, no palpable pulse 0633: epi #9 given 0634: pulse check, rhythm change. caridac activity on the monitor palpable pulse. HR:98 BP:216/72 0635: 3rd liter of fluids started 0645: epi #10 given, HR trending down 0655: EPI drip started at 5mcg/min 0701: ceftriaxone started Family now at bedside with MD and staff, family involved in plan of care and decision making. MD informed family of patients condition and plan of care forward. Family decided to continue all care and resources other than CPR if patient were to code again.
--- NOTE | 2025-01-22 07:17 | PC.NURSE ---
protective signal operations supervisor notified that patient has been accepted for admission and will need ICU bed. She states will need to call nurse in and will notify us when nurse arrives.
[2025-01-22 07:22] LABS: Albumin Level 2.6 g/dl (3.5-5.0); Chloride 111 mmol/L (98-107); Sodium 138 mmol/L (136-145)
[2025-01-22 07:25] LABS: Alanine Aminotransferase 64 U/L (12-78); Albumin/Globulin Ratio 1.1 (1.1-1.8); Alkaline Phosphatase 189 U/L (38-126); Anion Gap 27.6 mEq/L (5-15); Aspartate Amino Transferase 65 U/L (17-59); Bilirubin,Total 0.5 mg/dl (0.2-1.3); Blood Urea Nitrogen 11 mg/dl (9-20); Calcium 8.3 mg/dl (8.4-10.2); Creatinine Clearance Estimated 79 mL/min (50-200); Estimated Glomerular Filt Rate 304 ml/min (>60); GFR (African American) 368 ML/MIN (>60); Globulin 2.4 g/dL (1.3-3.2); Glucose 210 mg/dl (74-100)
[2025-01-22 07:27] LABS: Potassium 7.6 mmoL/L (3.5-5.1)
[2025-01-22 07:28] LABS: Carbon Dioxide 7 mmol/L (22.0-30.0)
[2025-01-22] MEDS: EPINEPHrine 5 MG in 0.9 % SODIUM CHLORIDE 250 ML 15.3 MG IV (07:35)
[2025-01-22] MEDS: NOREPINEPHRINE BITARTRATE/D5W 8 MG/250 ML PLAST..BAG 15 MG IV (07:36)
[2025-01-22 07:37] LABS: Troponin I < 0.01 ng/ml (0.00-0.034)
--- NOTE | 2025-01-22 07:37 | PC.NURSE ---
0736hrs: Lab called and requested a lavender top and blue top, both were collected and sent to lab.
[2025-01-22 07:49] LABS: Basophils # 0.1 K/mm3 (0-0.2); Basophils % 0.1 % (0.1-2.0); Eosinophils # 0.3 Kmm3 (0.0-0.4); Eosinophils % 0.7 % (0.1-12.0); Hematocrit 36.6 % (42.0-52.0); Hemoglobin 9.9 g/dL (14.1-18.0); Immature Granulocytes # 6.65 10^3uL; Immature Granulocytes % 16.2 %; Lymphocytes # 8.4 K/mm3 (0.7-4.5); Lymphocytes % 20.4 % (10-50); Mean Corpuscular Hemoglobin 21.2 pg (27.0-31.2); Mean Corpuscular Volume 78.2 fl (80-94); Mean Platelet Volume 11.3 fl (7.4-10.4); Monocytes # 0.4 K/mm3 (0.1-1.0); Monocytes % 1.1 % (1.7-9.3); Neutrophils # 25.2 K/mm3 (1.8-7.8); Neutrophils % 61.5 % (37.0-80.0); Nucleated Red Blood Cells # 0.66 10^3/uL; Nucleated Red Blood Cells % 1.6 %; Platelet Count 627 K/mm3 (142-424); Red Blood Count 4.68 M/mm3 (4.60-6.20); Red Cell Distribution Width 21.2 % (11.5-17.5); Red Cell Distribution Width-SD 56.8 fL
[2025-01-22 07:55] LABS: MANUAL DIFFERENTIAL MANUAL DIFFERENTIAL (MANUAL DIFF)
[2025-01-22 08:14] LABS: Chloride 104 mmol/L (98-107); Sodium 137 mmol/L (136-145)
[2025-01-22 08:15] LABS: Potassium 5.4 mmoL/L (3.5-5.1)
[2025-01-22 08:17] LABS: Blood Urea Nitrogen 14 mg/dl (9-20); Creatinine Clearance Estimated 79 mL/min (50-200); Estimated Glomerular Filt Rate 98 ml/min (>60); GFR (African American) 119 ML/MIN (>60)
[2025-01-22 08:18] LABS: Anion Gap 20.4 mEq/L (5-15); Calcium 9.1 mg/dl (8.4-10.2); Carbon Dioxide 18 mmol/L (22.0-30.0)
[2025-01-22 08:19] LABS: PTT Heparin (inpatient only) 95.9 Seconds (50-75)
[2025-01-22 08:22] LABS: Glucose 506 mg/dl (74-100)
[2025-01-22 08:39] LABS: ABG PCO2 129.7 mmhg (35.0-45.0); ABG PH 6.52 mmol/L (7.35-7.45)
[2025-01-22 08:40] LABS: ABG Base Excess -28.5 mmol/L (-2.4-2.3); ABG HCO3 10.5 mmhg (22.0-26.0); ABG Oxygen Saturation 22 % (90-100); ABG PO2 34.7 mmhg (80-100); ABG TCO2 14.5 mmhg (23-27); Allen's Test Patient Unable; Oxygen 100% %; Source A LINE
[2025-01-22 09:14] LABS: ABG PH 6.81 mmol/L (7.35-7.45)
[2025-01-22 09:15] LABS: ABG HCO3 11.3 mmhg (22.0-26.0); ABG Oxygen Saturation 100 % (90-100); ABG PCO2 71.4 mmhg (35.0-45.0); ABG PO2 320.1 mmhg (80-100); ABG TCO2 13.5 mmhg (23-27); Allen's Test Patient Unable; Oxygen 100 %; PEEP 5; Source A LINE; Tidal Volume 440; Vent Rate 24
[2025-01-22 09:30] LABS: Eosinophils % 1 % (0-3); Hypochromasia 2+; Lymphocytes % 34 % (10-50); Microcytosis 1+; Monocytes % 5 % (2-9); Myelocytes % 2 (0-1); Neutrophils % 57 % (42-76); Nucleated Red Blood Cells 2; Platelet Estimate Moderate Increase; Total Cells Counted 100
--- NOTE | 2025-01-22 09:30 | PC.NURSE ---
Dr Cook at bedside s/w family
--- NOTE | 2025-01-22 09:36 | PC.NURSE ---
Called supervisor [employer] to check on the status of ICU coming in to take the pt. Dorene states she is awaiting Dr Cook orders of pt possible being terminally extubated. There is not a nurse who can take an ICU level patient at this time per supervisor cured meats. Dr Mukherjee updated on this information.
[2025-01-22] MEDS: HEPARIN SODIUM,PORCINE/D5W 500 ML 16 UNIT IV (10:31)
--- NOTE | 2025-01-22 10:33 | PC.NURSE ---
[facility] in Pharmacy called stating Heparin gtt needed to be adfjusted to 16ml hr. He placed a new order in the MAR. Heparin gtt adjusted with Vidhi Pan RN. Family at bedside, no needs at this time.
--- NOTE | 2025-01-22 10:45 | PC.NURSE ---
Called and spoke with housekeeper/custodian/laundry worker, states that nurse is getting room ready, will call when ready to get report.
--- NOTE | 2025-01-22 11:15 | PC.NURSE ---
pt arrived to the icu by stretcher with icu and er staff
--- NOTE | 2025-01-22 12:55 | PC.WOUNDNOTE ---
scratch on right back
--- NOTE | 2025-01-22 12:58 | PC.WOUNDNOTE ---
sacral wounds with foul smelling drainage
--- NOTE | 2025-01-22 14:01 | PC.NURSE ---
[facility] was contacted due to GCS of 3. They stated to not withdraw care. A reimbursement representative will be calling back.
[2025-01-22] MEDS: NOREPINEPHRINE BITARTRATE/D5W 8 MG/250 ML PLAST..BAG 28.13 MG IV (14:38)
--- NOTE | 2025-01-22 15:57 | PC.NURSE ---
Pt remains intubated without need for sedation. GCS remains 3. Pt doesn't respond to any stimuli. [facility] is following. Vent settings are as follows: FiO2 100%, R 24, TV 440, PEEP 5. Suprapubic catheter is in place. Urine output has ceased since arrival to the unit. Total urinary output in bag was 720 ml total. Pt remains on pressors to maintain BP. Levophed gtt is infusing @ 15 mcg/min. Epinephrine gtt is infusing @ 10 mcg/min. He is very sensitive to any change in gtts. Heparin is currently at 800 units/hr. Ptt being drawn currently. DSGs to his sacrum and bottom both changed this afternoon. Serosanguineous drainage noted. No other concerns at this time. Family remains at bedside.
--- NOTE | 2025-01-22 16:30 | EXP.HP ---
History of Present Illness *Admission Date: 01/22/25 *Reason for visit:: Cardiac arrest *History of present illness: Evan Del Cid is a 64-year-old male with a medical history significant for functional paraplegia after CVA and cervical vertebral fracture, severe sacral/ischial unstageable ulcers, chronic suprapubic catheter who presented after he went into cardiac arrest at home. History was obtained from at bedside as patient is currently obtunded. Patient had recently been at [facility] for surgical intervention/debridement of worsening sacral/ischial ulcers. They also performed colostomy with PEG tube to reduce risk of infections for ulcers, and was apparently also treated for pneumonia. He was discharged and arrived home. Patient began having coughing spells and began having respiratory distress, then shallow breathing. When EMS arrived patient was in cardiac arrest but achieved ROSC after CPR. Patient unfortunately coded 4 times again after arrival to our ED, after which point ED provider extensively discussed severity of condition with at bedside who made patient DNR. He had already been intubated with epinephrine at that time. was not ready to terminally extubate patient. Per , patient had been aspirating frequently but had not received PEG tube feeds for 2 days prior to this presentation. On my evaluation of patient, he was completely obtunded, with dilated pupils nonresponsive to light, nonresponsive to pain, and no meaningful interaction. I discussed extensively with the patient's condition, significant blood work findings including WBC 41, pH 6.81, and the high probability that patient likely has significant anoxic brain injury from multiple cardiac arrests. elected to make patient comfort care but was not ready to terminally extubate patient as family was arriving from [place]. Case discussed with ED provider and decision was made to admit patient for end-of-life care. [facility] Disclaimer: The information contained in this section may have been updated after the patient was seen, as this information can be updated by other users. Medical History (Updated 01/22/25 @ 18:41 by Cecilia Vitale RN) Decubitus ulcer Hyperlipidemia Suprapubic catheter Colostomy in place Feeding by G-tube Quadriplegia CVA (cerebral vascular accident) Surgical History (Updated 01/22/25 @ 18:43 by Cecilia Vitale RN) S/P percutaneous endoscopic gastrostomy (PEG) tube placement S/P debridement Family History (Updated 01/22/25 @ 12:27 by Cecilia Vitale, RN) Other Stroke Social History (Updated 01/22/25 @ 12:27 by Cecilia Vitale, RN) Smoking Status: Never smoker alcohol intake: never current occupational status: other Travel in the last 8 weeks?: None household members: spouse Other Medical History Have you received the Flu Vaccine for this season: No Have you received the Pneumonia Vaccine: Yes Meds Home Medications and Allergies Home Medications ?Medication ?Instructions ?Recorded ?Confirmed ?Type aspirin 81 mg tablet,delayed 81 mg PO DAILY heart 02/20/19 01/22/25 History release atorvastatin 20 mg tablet 20 mg PO DAILY Cholesterol 02/20/19 01/22/25 History baclofen 20 mg tablet 20 mg PO 5XDAY spasms 02/20/19 01/22/25 History docusate sodium 100 mg capsule 100 mg PO DAILY constipation 02/20/19 01/22/25 History oxybutynin chloride 10 mg 10 mg PO DAILY bladder 02/20/19 01/22/25 History tablet,extended release 24 hr sennosides 8.6 mg tablet 8.6 mg PO DAILY constipation 02/20/19 01/22/25 History polyethylene glycol 3350 17 17 g feeding tube DAILY 01/22/25 01/22/25 History gram/dose oral powder New Prescriptions to Start Prescriptions: Allergies Allergy/AdvReac Type Severity Reaction Status Date / Time Penicillins Allergy Intermediate Verified 02/20/19 09:30 vancomycin Allergy Verified 02/20/19 09:30 Exam Data for Last 24 hours Vital signs and Labs for Last 24 Hours: Temp Pulse Resp BP Pulse Ox O2 Del Method O2 Flow Rate 97.6 F 116 H 17 126/80 100 Mechanical Ventilation 100 01/22/25 11:10 01/22/25 15:00 01/22/25 15:00 01/22/25 15:00 01/22/25 15:00 01/22/25 15:42 01/22/25 11:10 FiO2 100 01/22/25 15:42 Laboratory Results - last 24 hr 01/22/25 05:20: Sodium 138, Potassium 7.6 H*, Chloride 111 H, Carbon Dioxide 7 L*, Anion Gap 27.6 H, BUN 11, Creatinine 0.30 L, Estimated Creat Clear 79, Estimated GFR 304, Est GFR ( Amer) 368, Glucose 210 H, Calcium 8.3 L, Total Bilirubin 0.5, AST 65 H, ALT 64, Alkaline Phosphatase 189 H, Total Protein 5.0 L, Albumin 2.6 L, Globulin 2.4, Albumin/Globulin Ratio 1.1 01/22/25 05:40: Troponin I < 0.01 01/22/25 06:00: Specimen Source A line, O2 % 100%, ABG pH 6.52 L*, ABG pCO2 129.7 H, ABG pO2 34.7 L, ABG HCO3 10.5 L, ABG Total CO2 14.5 L, ABG O2 Saturation 22 L*, ABG Base Excess -28.5 L, Jonathan Test Patient unable 01/22/25 06:49: Specimen Source A line, O2 % 100, ABG pH 6.81 L*, ABG pCO2 71.4 H, ABG pO2 320.1 H, ABG HCO3 11.3 L, ABG Total CO2 13.5 L, ABG O2 Saturation 100, ABG Base Excess -23.0 L, Jonathan Test Patient unable, Vent Rate 24, Tidal Volume 440, PEEP 5 01/22/25 07:35: WBC 41.0 H*, RBC 4.68, Hgb 9.9 L, Hct 36.6 L, MCV 78.2 L, MCH 21.2 L, MCHC 27.0 L, RDW 21.2 H, Plt Count 627 H, MPV 11.3 H, Neut % (Auto) 61.5, Lymph % (Auto) 20.4, Divide % (Auto) 1.1 L, Eos % (Auto) 0.7, Baso % (Auto) 0.1, Neut # (Auto) 25.2 H, Lymph # (Auto) 8.4 H, Divide # (Auto) 0.4, Eos # (Auto) 0.3, Baso # (Auto) 0.1, Total Counted 100, Neutrophils % (Manual) 57, Lymphocytes % (Manual) 34, Monocytes % (Manual) 5, Eosinophils % (Manual) 1, Myelocytes % 2 H, Blast Cells % 1.0, Nucleated RBCs 2, Platelet Estimate Moderate increase, Hypochromasia 2+, Microcytosis 1+, APTT 95.9 H*, D-Dimer 8.10 H 06/15/25 08:02: Sodium 137, Potassium 5.4 H D, Chloride 104, Carbon Dioxide 18 L, Anion Gap 20.4 H, BUN 14 D, Creatinine 0.80 D, Estimated Creat Clear 79, Estimated GFR 98, Est GFR ( Amer) 119 D, Glucose 506 H* D, Calcium 9.1 I & O for Last 24 hours: Intake & Output 01/19/25 01/20/25 01/21/25 01/22/25 23:59 23:59 23:59 23:59 Intake Total 162.518 / 162.518 Output Total 720 / 720 Balance -557.482 / -557.482 Weight 72.575 kg Microbiology Reports for the Last 24 Hours: Microbiology 01/22/25 06:20 Sputum - Endotracheal Tube Aspirate Gram Stain - Final Constitutional Constitutional: no acute distress *Routine HEENT Exam Head: Present other Eye: Present other ENT: Present other *Routine Respiratory Exam Respiratory: Present patient mechanically ventilated *Routine Cardiovascular Exam Cardiovascular: Present tachycardia *Routine Abdominal Exam Abdominal: Present soft *Routine Rectal Exam Rectal:: deferred *Routine Genitalia Exam Genitalia:: deferred *Routine Neurological Exam Comments: OBtunded. Assessment and Plan *Assessment and plan (1) Respiratory failure with hypoxia and hypercapnia: Status: Acute Category: Medical Code(s): J96.91 - Respiratory failure, unspecified with hypoxia; J96.92 - Respiratory failure, unspecified with hypercapnia (2) Cardiac arrest: Status: Acute Category: Medical Code(s): I46.9 - Cardiac arrest, cause unspecified Plan Evan Del Cid is a 64-year-old male with a medical history significant for functional paraplegia after CVA and cervical vertebral fracture, severe sacral/ischial unstageable ulcers, chronic suprapubic catheter who presented after he went into cardiac arrest at home. History was obtained from at bedside as patient is currently obtunded. Patient had recently been at [facility] for surgical intervention/debridement of worsening sacral/ischial ulcers. They also performed colostomy with PEG tube to reduce risk of infections for ulcers, and was apparently also treated for pneumonia. He was discharged and arrived home. Patient began having coughing spells and began having respiratory distress, then shallow breathing. When EMS arrived patient was in cardiac arrest but achieved ROSC after CPR. Patient unfortunately coded 4 times again after arrival to our ED, after which point ED provider extensively discussed severity of condition with at bedside who made patient DNR. He had already been intubated with epinephrine at that time. was not ready to terminally extubate patient. Per , patient had been aspirating frequently but had not received PEG tube feeds for 2 days prior to this presentation. On my evaluation of patient, he was completely obtunded, with dilated pupils nonresponsive to light, nonresponsive to pain, and no meaningful interaction. I discussed extensively with the patient's condition, significant blood work findings including WBC 41, pH 6.81, and the high probability that patient likely has significant anoxic brain injury from multiple cardiac arrests. elected to make patient comfort care but was not ready to terminally extubate patient as family was arriving from [place]. Case discussed with ED provider and decision was made to admit patient for end-of-life care. #Comfort care #Functional paraplegic #Severe sacral, ischial ulcers s/p colostomy with PEG tube #Cardiac arrest #Anoxic brain injury #Suspected aspiration pneumonia #Severe sepsis #Severe metabolic acidosis #Chronic suprapubic catheter ? Unfortunately, on my evaluation of patient he was completely obtunded with no feedback from dilated, fixed pupils, pain response, sternal rub. ? Currently mechanically ventilated on epinephrine requiring no sedation, and with above findings highly suggesting anoxic brain injury. ? I discussed extensively with the patient's condition, significant blood work findings including WBC 41, pH 6.81, his reliance on mechanical ventilation and epinephrine, and the high probability that patient likely has significant anoxic brain injury from multiple cardiac arrests. elected to make patient comfort care but was not ready to terminally extubate patient as family was arriving from [place]. ? Will continue mechanical ventilation with epinephrine until is ready to terminally extubate patient. ? Morphine, Ativan, mycophenolate as needed. Comfort care
[2025-01-22] MEDS: EPINEPHrine 5 MG in 0.9 % SODIUM CHLORIDE 250 ML 30.6 MG IV (16:31)
[2025-01-22 17:27] LABS: PTT Heparin (inpatient only) 38.7 Seconds (50-75)
[2025-01-22 17:38] LABS: POC Glucose,Bedside 297 (70-110)
[2025-01-22] MEDS: GLYCOPYRROLATE 0.2 MG/ML 1ML VIAL IV ×2 (23:15→23:31)
[2025-01-22] MEDS: MORPHINE 2MG/ML SYRINGE 2 MG IV (23:16)
[2025-01-22] MEDS: LORazepam 2MG/ML VIAL 1 MG IV (23:31)
--- NOTE | 2025-01-22 23:49 | P.DN_ITS ---
Pronouncement Note Date and Time of Date of : 01/22/25 Time of : 23:45 PCOD Preliminary cause of : Heart failure Contributing Factors (1) Respiratory failure with hypoxia and hypercapnia: Contributing factors: Evan Del Cid is a 64-year-old male with a medical history significant for functional paraplegia after CVA and cervical vertebral fracture, severe sacral/ischial unstageable ulcers, chronic suprapubic catheter who presented after he went into cardiac arrest at home. History was obtained from at bedside as patient is currently obtunded. Patient had recently been at [facility] for surgical intervention/debridement of worsening sacral/ischial ulcers. They also performed colostomy with PEG tube to reduce risk of infections for ulcers, and was apparently also treated for pneumonia. He was discharged and arrived home. Patient began having coughing spells and began having respiratory distress, then shallow breathing. When EMS arrived patient was in cardiac arrest but achieved ROSC after CPR. Patient unfortunately coded 4 times again after arrival to our ED (2) Cardiac arrest: Contributing factors: Patient was placed in the intensive care unit., Family has arrived from out of state to be with the patient. Family is in room with the patient and have spoken with [facility]. They do not wish to donate any organs. With this in the patient's family request, patient was given medication to relax him.. Noting that the patient was not responsive to any stimuli before this. Respiratory therapist then removed the ET tube. And with the family at bedside the patient was kept comfortable and over approximately a 12-minute period his heart stopped. Summary Additional details: After giving the family time to be alone with their loved 1 I did come into the room to examine the patient listen to his heart and lung sounds for more than 60 seconds make sure there was no signs of life and pronounced the patient at 23:45. Additional Data Confirmation of : no pulse, no respirations, no heart sounds and pupils fixed and dilated Family: at bedside Attending/PCP notified?: No (Dr. Cook was aware of the plan for the patient, ) Attending physician: Carlos Cook MD Was code activated?: No Autopsy should be considered if:: Unknown or unanticipated medical complications Cause is not known with certainty on clinical grounds Would allay concerns of the public/family regarding Unexplained/unexpected apparently natural and not subject to a forensic medical jurisdiction DOA Within 24 hours of admission Sustained or apparently sustained injury while in the hospital Result of high risk, infectious and contagious disease Obstetric and pediatric arising from environmental or occupational hazard Unexplained/unexpected from dental, medical, or surgical diagnostic procedures and/or therapies Would disclose a known or suspected illness which also may have a bearing on survivors or recipients of transplanted organs Autopsy requested?: No Does not meet criteria medical examiner notified?: No Organ bank notified?: Yes (Patient's family did not want to donate organs) Advance directives: Yes (Yes , family placed no CODE STATUS)
--- NOTE | 2025-01-22 23:58 | EXP.DC.SUM ---
General Admission date:: 01/22/25 Discharge date: 01/22/25 HPI HPI HPI: Evan Del Cid is a 64-year-old male with a medical history significant for functional paraplegia after CVA and cervical vertebral fracture, severe sacral/ischial unstageable ulcers, chronic suprapubic catheter who presented after he went into cardiac arrest at home. History was obtained from at bedside as patient is currently obtunded. Patient had recently been at [facility] for surgical intervention/debridement of worsening sacral/ischial ulcers. They also performed colostomy with PEG tube to reduce risk of infections for ulcers, and was apparently also treated for pneumonia. He was discharged and arrived home. Patient began having coughing spells and began having respiratory distress, then shallow breathing. When EMS arrived patient was in cardiac arrest but achieved ROSC after CPR. Patient unfortunately coded 4 times again after arrival to our ED, after which point ED provider extensively discussed severity of condition with at bedside who made patient DNR. He had already been intubated with epinephrine at that time. was not ready to terminally extubate patient. Per , patient had been aspirating frequently but had not received PEG tube feeds for 2 days prior to this presentation. On my evaluation of patient, he was completely obtunded, with dilated pupils nonresponsive to light, nonresponsive to pain, and no meaningful interaction. I discussed extensively with the patient's condition, significant blood work findings including WBC 41, pH 6.81, and the high probability that patient likely has significant anoxic brain injury from multiple cardiac arrests. elected to make patient comfort care but was not ready to terminally extubate patient as family was arriving from [place]. Case discussed with ED provider and decision was made to admit patient for end-of-life care. Hospital Course Hospital Course Hospital Course: Patient came in the night before and being coded., Emergency room personnel were able to regain pulse., Patient never woke up after this. Family notified patient placed in the ICU decision was made to make the patient a no CODE STATUS and family did not want any organ donation. At that point in time patient made sure that they were comfortable some medication was given but the patient was never alert never responsive. Also noted that all drips were stopped and the patient was extubated. In approximately a 15-minute time after that the patient became asystole with no respirations Exam Data for Last 24 hours Vital signs and Labs for Last 24 Hours: Temp Pulse Resp BP Pulse Ox O2 Del Method O2 Flow Rate 101.4 F H 0 L 0 L 0/0 L 0 L Mechanical Ventilation 100 01/22/25 20:00 01/22/25 23:46 01/22/25 23:46 01/22/25 23:46 01/22/25 23:46 01/22/25 22:00 01/22/25 11:10 FiO2 100 01/22/25 21:00 Laboratory Results - last 24 hr 01/22/25 05:20: Sodium 138, Potassium 7.6 H*, Chloride 111 H, Carbon Dioxide 7 L*, Anion Gap 27.6 H, BUN 11, Creatinine 0.30 L, Estimated Creat Clear 79, Estimated GFR 304, Est GFR ( Amer) 368, Glucose 210 H, Calcium 8.3 L, Total Bilirubin 0.5, AST 65 H, ALT 64, Alkaline Phosphatase 189 H, Total Protein 5.0 L, Albumin 2.6 L, Globulin 2.4, Albumin/Globulin Ratio 1.1 01/22/25 05:40: Troponin I < 0.01 01/22/25 06:00: Specimen Source A line, O2 % 100%, ABG pH 6.52 L*, ABG pCO2 129.7 H, ABG pO2 34.7 L, ABG HCO3 10.5 L, ABG Total CO2 14.5 L, ABG O2 Saturation 22 L*, ABG Base Excess -28.5 L, Jonathan Test Patient unable 01/22/25 06:49: Specimen Source A line, O2 % 100, ABG pH 6.81 L*, ABG pCO2 71.4 H, ABG pO2 320.1 H, ABG HCO3 11.3 L, ABG Total CO2 13.5 L, ABG O2 Saturation 100, ABG Base Excess -23.0 L, Jonathan Test Patient unable, Vent Rate 24, Tidal Volume 440, PEEP 5 01/22/25 07:35: WBC 41.0 H*, RBC 4.68, Hgb 9.9 L, Hct 36.6 L, MCV 78.2 L, MCH 21.2 L, MCHC 27.0 L, RDW 21.2 H, Plt Count 627 H, MPV 11.3 H, Neut % (Auto) 61.5, Lymph % (Auto) 20.4, Jackson % (Auto) 1.1 L, Eos % (Auto) 0.7, Baso % (Auto) 0.1, Neut # (Auto) 25.2 H, Lymph # (Auto) 8.4 H, Jackson # (Auto) 0.4, Eos # (Auto) 0.3, Baso # (Auto) 0.1, Total Counted 100, Neutrophils % (Manual) 57, Lymphocytes % (Manual) 34, Monocytes % (Manual) 5, Eosinophils % (Manual) 1, Myelocytes % 2 H, Blast Cells % 1.0, Nucleated RBCs 2, Platelet Estimate Moderate increase, Hypochromasia 2+, Microcytosis 1+, APTT 95.9 H*, D-Dimer 8.10 H 01/22/25 08:02: Sodium 137, Potassium 5.4 H D, Chloride 104, Carbon Dioxide 18 L, Anion Gap 20.4 H, BUN 14 D, Creatinine 0.80 D, Estimated Creat Clear 79, Estimated GFR 98, Est GFR ( Amer) 119 D, Glucose 506 H* D, Calcium 9.1 01/22/25 12:02: POC Glucose 297 H 01/22/25 17:00: APTT 38.7 L I & O for Last 24 hours: Intake & Output 01/20/25 01/21/25 01/22/25 01/23/25 05:59 05:59 05:59 05:59 Intake Total 939.750 / 939.750 Output Total 720 / 720 Balance 219.750 / 219.750 Weight 160 lb Microbiology Reports for the Last 24 Hours: Microbiology 01/22/25 06:20 Sputum - Endotracheal Tube Aspirate Gram Stain - Final Constitutional Constitutional: no acute distress Comments: summary was done patient was pronounced at 23:45 , with family at bedside Results Data Completed and Pending Labs on day of discharge: Labs from last 24 hours 01/22/25 01/22/25 01/22/25 17:00 12:02 08:02 WBC RBC Hgb Hct MCV MCH MCHC RDW Plt Count MPV Neut % (Auto) Lymph % (Auto) Jackson % (Auto) Eos % (Auto) Baso % (Auto) Neut # (Auto) Lymph # (Auto) Jackson # (Auto) Eos # (Auto) Baso # (Auto) Total Counted Neutrophils % (Manual) Lymphocytes % (Manual) Monocytes % (Manual) Eosinophils % (Manual) Myelocytes % Blast Cells % Nucleated RBCs Platelet Estimate Hypochromasia Microcytosis APTT 38.7 L D-Dimer Specimen Source O2 % ABG pH ABG pCO2 ABG pO2 ABG HCO3 ABG Total CO2 ABG O2 Saturation ABG Base Excess Jonathan Test Vent Rate Tidal Volume PEEP Sodium 137 Potassium 5.4 H D Chloride 104 Carbon Dioxide 18 L Anion Gap 20.4 H BUN 14 D Creatinine 0.80 D Estimated Creat Clear 79 Estimated GFR 98 Est GFR ( Amer) 119 D Glucose 506 H* D POC Glucose 297 H Calcium 9.1 Total Bilirubin AST ALT Alkaline Phosphatase Troponin I Total Protein Albumin Globulin Albumin/Globulin Ratio 01/22/25 01/22/25 01/22/25 07:35 06:49 06:00 WBC 41.0 H* RBC 4.68 Hgb 9.9 L Hct 36.6 L MCV 78.2 L MCH 21.2 L MCHC 27.0 L RDW 21.2 H Plt Count 627 H MPV 11.3 H Neut % (Auto) 61.5 Lymph % (Auto) 20.4 Jackson % (Auto) 1.1 L Eos % (Auto) 0.7 Baso % (Auto) 0.1 Neut # (Auto) 25.2 H Lymph # (Auto) 8.4 H Jackson # (Auto) 0.4 Eos # (Auto) 0.3 Baso # (Auto) 0.1 Total Counted 100 Neutrophils % (Manual) 57 Lymphocytes % (Manual) 34 Monocytes % (Manual) 5 Eosinophils % (Manual) 1 Myelocytes % 2 H Blast Cells % 1.0 Nucleated RBCs 2 Platelet Estimate Moderate increase Hypochromasia 2+ Microcytosis 1+ APTT 95.9 H* D-Dimer 8.10 H Specimen Source A line A line O2 % 100 100% ABG pH 6.81 L* 6.52 L* ABG pCO2 71.4 H 129.7 H ABG pO2 320.1 H 34.7 L ABG HCO3 11.3 L 10.5 L ABG Total CO2 13.5 L 14.5 L ABG O2 Saturation 100 22 L* ABG Base Excess -23.0 L -28.5 L Jonathan Test Patient unable Patient unable Vent Rate 24 Tidal Volume 440 PEEP 5 Sodium Potassium Chloride Carbon Dioxide Anion Gap BUN Creatinine Estimated Creat Clear Estimated GFR Est GFR ( Amer) Glucose POC Glucose Calcium Total Bilirubin AST ALT Alkaline Phosphatase Troponin I Total Protein Albumin Globulin Albumin/Globulin Ratio 01/22/25 01/22/25 05:40 05:20 WBC RBC Hgb Hct MCV MCH MCHC RDW Plt Count MPV Neut % (Auto) Lymph % (Auto) Jackson % (Auto) Eos % (Auto) Baso % (Auto) Neut # (Auto) Lymph # (Auto) Jackson # (Auto) Eos # (Auto) Baso # (Auto) Total Counted Neutrophils % (Manual) Lymphocytes % (Manual) Monocytes % (Manual) Eosinophils % (Manual) Myelocytes % Blast Cells % Nucleated RBCs Platelet Estimate Hypochromasia Microcytosis APTT D-Dimer Specimen Source O2 % ABG pH ABG pCO2 ABG pO2 ABG HCO3 ABG Total CO2 ABG O2 Saturation ABG Base Excess Jonathan Test Vent Rate Tidal Volume PEEP Sodium 138 Potassium 7.6 H* Chloride 111 H Carbon Dioxide 7 L* Anion Gap 27.6 H BUN 11 Creatinine 0.30 L Estimated Creat Clear 79 Estimated GFR 304 Est GFR ( Amer) 368 Glucose 210 H POC Glucose Calcium 8.3 L Total Bilirubin 0.5 AST 65 H ALT 64 Alkaline Phosphatase 189 H Troponin I < 0.01 Total Protein 5.0 L Albumin 2.6 L Globulin 2.4 Albumin/Globulin Ratio 1.1 Impressions Impressions: Patient has Additional Comments Additional comments: Body will be taken care of as per family instructions DS: Diagnosis Discharge Diagnosis (1) Respiratory failure with hypoxia and hypercapnia: Status: Acute Code(s): J96.91 - Respiratory failure, unspecified with hypoxia; J96.92 - Respiratory failure, unspecified with hypercapnia (2) Cardiac arrest: Start date: 01/22/25 Status: Acute Code(s): I46.9 - Cardiac arrest, cause unspecified Problem details: Evan Del Cid is a 64-year-old male with a medical history significant for functional paraplegia after CVA and cervical vertebral fracture, severe sacral/ischial unstageable ulcers, chronic suprapubic catheter who presented after he went into cardiac arrest at home. History was obtained from at bedside as patient is currently obtunded. Patient had recently been at [facility] for surgical intervention/debridement of worsening sacral/ischial ulcers. They also performed colostomy with PEG tube to reduce risk of infections for ulcers, and was apparently also treated for pneumonia. He was discharged and arrived home. Patient began having coughing spells and began having respiratory distress, then shallow breathing. When EMS arrived patient was in cardiac arrest but achieved ROSC after CPR. Patient unfortunately coded 4 times again after arrival to our ED Meds Home Medications and Allergies Home Medications ?Medication ?Instructions ?Recorded ?Confirmed ?Type aspirin 81 mg tablet,delayed 81 mg PO DAILY heart 02/20/19 01/22/25 History release atorvastatin 20 mg tablet 20 mg PO DAILY Cholesterol 02/20/19 01/22/25 History baclofen 20 mg tablet 20 mg PO 5XDAY spasms 02/20/19 01/22/25 History docusate sodium 100 mg capsule 100 mg PO DAILY constipation 02/20/19 01/22/25 History oxybutynin chloride 10 mg 10 mg PO DAILY bladder 02/20/19 01/22/25 History tablet,extended release 24 hr sennosides 8.6 mg tablet 8.6 mg PO DAILY constipation 02/20/19 01/22/25 History polyethylene glycol 3350 17 17 g feeding tube DAILY 01/22/25 01/22/25 History gram/dose oral powder New Prescriptions to Start Prescriptions: Allergies Allergy/AdvReac Type Severity Reaction Status Date / Time Penicillins Allergy Intermediate Verified 02/20/19 09:30 vancomycin Allergy Verified 02/20/19 09:30 Discharge Plan Disposition Patient Disposition: Condition: Other Patient Discharge Instructions Print Language: Gibraltarian Providers Primary Care Provider: Karen Car Admit Provider: Carlos Cook Attending Provider: Carlos Cook
--- NOTE | 2025-01-23 01:05 | PC.NURSE ---
2305: [facility] operations representative to bedside to speak with family about donation. Patients family refused at this time and wished to move forward with withdrawal of care. Provider Ayla [employer] notifed and agreed to continue with withdrawal of care at this time. 2319: pt terminally extubated. RT at bedside to perform extubation. This nurse at bedside to give pt medications to make patient comfortable and to assist RT. This nurse also turned off pts iv medications (Levo, Epi, Heparin) at this time. 2345: Pt TOD. Provider Ayla at bedside to pronounce time of . 2352: [facility] called and notified of pts TOD. Spoke with Erick Corrales. . Erick stated he would call back to notify if [facility] will be following for tissue donation. 0020:
--- NOTE | 2025-01-23 01:17 | PC.NURSE ---
0020 : [facility] called back to notify they will not be following for tissue donation at this time and stated we are okay to release the body to the home when ready.
--- NOTE | 2025-01-23 02:51 | PC.NURSE ---
pt left to home at this time
--- NOTE | 2025-01-23 08:01 | HMH.PHAHEP ---
[facility] Pharmacy Heparin Dosing Demographic Data Admission date:: 01/22/25 Date: 01/23/25 Time: 07:00 Allergies Allergy/AdvReac Type Severity Reaction Status Date / Time Penicillins Allergy Intermediate Verified 02/20/19 09:30 vancomycin Allergy Verified 02/20/19 09:30 Height: 1.73 m Weight: 72.575 kg Indication Medication therapy:: Heparin Current Indications:: ACUTE CORONARY SYNDROME - LOW DOSE PROTOCOL Current Active Problems (Updated 01/23/25 @ 00:01 by Gaudencio Kinsey APRN) Respiratory failure with hypoxia and hypercapnia (Acute) Cardiac arrest (Acute) Respiratory arrest (Acute) CVA?: No Bleeding problem?: No Kidney disease?: No ME?: No Additional History:: CARDIAC ARREST, HISTORY OF STROKE Desired PTT range:: 50-75 seconds Comments:: NO BASELINE PTT OBTAINED PER JUSTA/SANTO. Monitoring Dose Monitor 1: Date: 01/22/25 Time: 06:05 PTT Result:: NO BASELINE OBTAINED PER JUSTA Infusion Rate:: JUSTA RECOMMENDED STARTING HEPARIN DRIP AT 950 UNITS/HOUR = 19 ML/HOUR AND BOLUSING 4000 UNITS HEPARIN IV ONCE. Dose Monitor 2: Date: 01/22/25 Time: 07:38 PTT Result:: 95.9 SECONDS Infusion Rate:: SANTO RECOMMENDED DECREASING HEPARIN DRIP TO 800 UNITS/HOUR = 16 ML/HOUR Dose Monitor 3: Date: 01/22/25 Time: 16:30 PTT Result:: 38.7 SECONDS Infusion Rate:: JUSTA RECOMMENDED INCREASING HEPARIN DRIP TO 1050 UNITS/HOUR = 21 ML/HOUR AND BOLUSING 4000 UNITS HEPARIN IV ONCE. Core Measures Is INR > or = 2 at discharge?: No Most Recent Labs:: Laboratory Results - last 24 hr 01/22/25 06:00: Specimen Source A line, O2 % 100%, ABG pH 6.52 L*, ABG pCO2 129.7 H, ABG pO2 34.7 L, ABG HCO3 10.5 L, ABG Total CO2 14.5 L, ABG O2 Saturation 22 L*, ABG Base Excess -28.5 L, Jonathan Test Patient unable 01/22/25 06:49: Specimen Source A line, O2 % 100, ABG pH 6.81 L*, ABG pCO2 71.4 H, ABG pO2 320.1 H, ABG HCO3 11.3 L, ABG Total CO2 13.5 L, ABG O2 Saturation 100, ABG Base Excess -23.0 L, Jonathan Test Patient unable, Vent Rate 24, Tidal Volume 440, PEEP 5 01/22/25 07:35: Total Counted 100, Neutrophils % (Manual) 57, Lymphocytes % (Manual) 34, Monocytes % (Manual) 5, Eosinophils % (Manual) 1, Myelocytes % 2 H, Blast Cells % 1.0, Nucleated RBCs 2, Platelet Estimate Moderate increase, Hypochromasia 2+, Microcytosis 1+, APTT 95.9 H*, D-Dimer 8.10 H 01/22/25 08:02: Sodium 137, Potassium 5.4 H D, Chloride 104, Carbon Dioxide 18 L, Anion Gap 20.4 H, BUN 14 D, Creatinine 0.80 D, Estimated Creat Clear 79, Estimated GFR 98, Est GFR ( Amer) 119 D, Glucose 506 H* D, Calcium 9.1 01/22/25 12:02: POC Glucose 297 H 01/22/25 17:00: APTT 38.7 L If INR was < than 2.0 why was therapy stopped?: DRIP STOPPED AND CARE WITHDRAWN AT 23:05 PER NURSE NOTE. Were Heparin and Warfarin started on the same day?: No If not, why?: DRIP STOPPED AND CARE WITHDRAWN AT 23:05 PER NURSE NOTE.
== END 2025-01-23 02:51 | disposition expired | DRG 951 ==
LOC: ER 06:49 → ICU 11:01
PROVIDERS: Admitting Provider Student in an Organized Health Care Education/Training Program; Emergency Provider Emergency Medicine; PCP Physical Medicine & Rehabilitation Spinal Cord Injury Medicine; Visit Provider Student in an Organized Health Care Education/Training Program
DX: Z51.5 Encounter for palliative care (principal); A41.9 Sepsis, unspecified organism; J69.0 Pneumonitis due to inhalation of food and vomit; J96.91 Respiratory failure, unspecified with hypoxia; J96.92 Respiratory failure, unspecified with hypercapnia; R65.20 Severe sepsis without septic shock; L89.154 Pressure ulcer of sacral region, stage 4; L89.304 Pressure ulcer of unspecified buttock, stage 4; G93.1 Anoxic brain damage, not elsewhere classified; E87.20 Acidosis, unspecified; I46.9 Cardiac arrest, cause unspecified; I50.9 Heart failure, unspecified; I69.398 Other sequelae of cerebral infarction; Z66 Do not resuscitate; Z96.0 Presence of urogenital implants; I48.91 Unspecified atrial fibrillation; E87.5 Hyperkalemia; Z79.82 Long term (current) use of aspirin; Z79.899 Other long term (current) drug therapy; Z88.0 Allergy status to penicillin; Z88.1 Allergy status to other antibiotic agents; Z93.1 Gastrostomy status
CPT/HCPCS: 31500; 36415; 71045; 80048; 80053; 82803; 82962; 84484; 85007; 85025; 85378; 85730; 87070; 87081; 87205; 92950; 93005; J0171; J0696; J1596; J1644; J2060; J2270; J7050